=== PATIENT | female | born 1980 | race Caucasian/White ===

== ENCOUNTER 2016-10-12 18:27 | Emergency (ER) | payer OTHER ==
--- NOTE | 2016-10-12 18:45 | ED Physician Documentation ---
General Adult - HISTORIAN Historian: patient - HPI Stated Complaint: L shoulder pain Chief Complaint: General Adult Onset: days ago (7) Timing: still present, worse Severity: moderate Further Comments: yes (Pt is a 35 yo female with L shoulder pain. 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 Pain began in the neck and upper back, but today pt had acute pain in L shoulder, and is unable to move it through all ranges of motion.) - ROS CONST: no problems EYES/ENT: none CVS/RESP: none GI/: none MS/SKIN/LYMPH: other (L shoulder pain) - PAST HX Past History: none - SOCIAL HX Smoking History: non-smoker - FAMILY HX Family History: No - VITAL SIGNS Vital Signs: Vital Signs Temp Pulse Resp BP Pulse Ox 114/81 02/24/15 10:05 - REVIEWED ASSESSMENTS Nursing Assessment Reviewed: Yes Vitals Reviewed: Yes <Royer Camilo - Last Filed: 10/12/16 19:06> - VITAL SIGNS Vital Signs: Vital Signs Temp Pulse Resp BP Pulse Ox 98.2 F 83 18 137/95 95 10/12/16 18:38 10/12/16 18:38 10/12/16 18:38 10/12/16 18:38 10/12/16 18:38 <[facility] - Last Filed: 10/12/16 19:22> - PAST HX Allergies/Adverse Reactions: Allergies Allergy/AdvReac Type Severity Reaction Status Date / Time Sulfa (Sulfonamide AdvReac Unknown Rash Verified 10/12/16 18:36 Antibiotics) Home Medications: Ambulatory Orders Medication Instructions Recorded Cyclobenzaprine HCl [Flexeril] 10 mg PO HS #20 tablet 10/12/16 Ketorolac Tromethamine [Toradol] 10 mg PO Q8H #30 tablet 10/12/16 Progress - Progress Progress: Care transferred to [facility] at 1900. <Royer Camilo - Last Filed: 10/12/16 19:06> ED Results Lab/Radiology - Orders Orders: ED Orders Category Date Time Status SHOULDER 2 VIEWS OR MORE [RAD] Stat Exams 10/12/16 Ordered <Royer Camilo - Last Filed: 10/12/16 19:06> - Orders Orders: ED Orders Category Date Time Status SHOULDER 2 VIEWS OR MORE [RAD] Stat Exams 10/12/16 Ordered Cyclobenzaprine HCl [Flexeril] Med 10/12/16 19:19 Once 10 mg PO NOW ONE <CHAPARRITA FIELD - Last Filed: 10/12/16 19:22> General Adult Physical Exam - PHYSICAL EXAM GENERAL APPEARANCE: moderate distress NECK: normal inspection, supple RESPIRATORY: no resp distress, chest non-tender CVS: reg rate & rhythm BACK: normal inspection, other (tenderness L side of neck) SKIN: warm/dry, normal color EXTREMITIES: other (L shoulder tenderness over scapula; pt unable to move through all ranges of motion 2nd pain) NEURO: oriented X3, motor nml, sensation nml <Royer Camilo - Last Filed: 10/12/16 19:06> Discharge <Royer Camilo - Last Filed: 10/12/16 19:06> Decision to Admit: NO Decision Time: 19:20 <CHAPARRITA FIELD - Last Filed: 10/12/16 19:22> Clincal Impression: Shoulder pain, left Prescriptions: Cyclobenzaprine HCl [Flexeril] 10 mg PO HS #20 tablet Ketorolac Tromethamine [Toradol] 10 mg PO Q8H #30 tablet Additional Instructions: Heat or cold to the sore area several times a day followed by gentle motion and stretching. Home Medications: Ambulatory Orders Cyclobenzaprine HCl [Flexeril] 10 mg PO HS #20 tablet 10/12/16 Ketorolac Tromethamine [Toradol] 10 mg PO Q8H #30 tablet 10/12/16 Condition: Good Disposition: 01 HOME, SELF-CARE
[2016-10-12] MEDS ORDERED: CYCLOBENZAPRINE HCL 5 MG TABLET PO ONE (19:19)
[2016-10-12 19:31] VITALS: BP 122/74
--- NOTE | 2016-10-13 02:45 | Diagnostic Imaging Report ---
Report Submission Date: Oct 12, 2016 7:07:05 PM UTILIZATION ENGINEER Patient ~ Study Name: WICHO FREEMAN ~ Date: Oct 12, 2016 6:49:41 PM UTILIZATION ENGINEER ~ Modality Type: CR Gender: F ~ Description: SHOULDER : 82 ~ Institution: [facility] Physician: BRYANT LYNN ~ ~ ~ ~ 3 views the shoulder Clinical history: Left shoulder pain Findings: No acute fracture dislocation is identified. The alignment is normal. No abnormal calcifications. Impression: Negative ~ Electronically signed on Oct 12, 2016 7:07:05 PM UTILIZATION ENGINEER by: Tristin CORTEZ
== END 2016-10-12 19:28 | disposition home or self-care (01) ==
LOC: ED 18:27
DX: M25.512 Pain in left shoulder (principal)
CPT/HCPCS: 73030; 99283